=== PATIENT | male | born 1965 | race Caucasian/White ===

== ENCOUNTER → 2021-03-17 | Day surgery (SDC) | payer BC ==
[~2021-03-17] MED LIST: LIPITOR10 MG PO
== END | disposition home or self-care (01) ==
LOC: OR 03-03 08:05
DX: Z12.11 Encounter for screening for malignant neoplasm of colon (principal); K57.30 Diverticulosis of large intestine without perforation or abscess without bleeding; M19.90 Unspecified osteoarthritis, unspecified site; M21.42 Flat foot [pes planus] (acquired), left foot; E78.5 Hyperlipidemia, unspecified; K21.9 Gastro-esophageal reflux disease without esophagitis; R73.9 Hyperglycemia, unspecified; Z80.0 Family history of malignant neoplasm of digestive organs; Z79.899 Other long term (current) drug therapy
CPT/HCPCS: J2704; J7030

== ENCOUNTER → 2021-11-30 | Outpatient (CLI) | payer BC | LOC: EXRD 13:26 | DX: R05.3 Chronic cough (principal) | CPT/HCPCS: 71046 ==